=== PATIENT | female | born 1990 | race Caucasian/White ===

== ENCOUNTER 2019-03-23 22:04 | Emergency (ER) | payer BC, MEDICAID ==
[~2019-03-23] VITALS: Ht 152.4 cm; Wt 53.0 kg
[2019-03-23] MEDS ORDERED: HYDRALAZINE 20MG/ML VIAL IV ONE (23:15)
[2019-03-23 23:20] LABS: BASOPHILS % 0.8 % (0.0-2.0); EOSINOPHILS % 1.9 % (0.0-5.0); HEMATOCRIT. 38.4 % (36.0-48.0); HEMOGLOBIN. 13.1 g/dL (12.0-16.0); LYMPHOCYTES % 40.9 % (20.0-50.0); MEAN CORPUSCULAR VOLUME 85.1 fL (81.0-99.0); MEAN PLATELET VOLUME 9.6 fl (7.4-10.4); MONOCYTES % 6.9 % (2.0-8.0); NEUTROPHILS % 49.5 % (40.0-76.0); PLATELET 282 x1000/uL (130-400); RED BLOOD CELL COUNT 4.51 mill/uL (4.2-5.4); RED CELL DISTRIBUTION WIDTH 12.9 % (11.6-14.6)
[2019-03-23 23:26] LABS: CHLORIDE 102 mEq/L (98-107)
[2019-03-24 00:35] VITALS: BP 123/75
== END 2019-03-24 00:30 | disposition home or self-care (01) ==
LOC: ER 22:04
DX: I10 Essential (primary) hypertension (principal); R42 Dizziness and giddiness; E11.9 Type 2 diabetes mellitus without complications
CPT/HCPCS: 36415; 80053; 81025; 82962; 85025; 96374; 99283; J0360